=== PATIENT | female | born 1990 | race Caucasian/White ===

== ENCOUNTER 2016-07-29 10:08 | Emergency (ER) | payer MEDICAID ==
[~2016-07-29] VITALS: Ht 177.8 cm; Wt 77.1 kg
--- NOTE | 2016-07-29 10:42 | NUR ---
PRESENT SELF TO ED FOR PELVIC PAIN X 4 DAYS AND VAGINAL BUMPS. PT DENIES HEMATURIA AND DYSURIA, NO DISCHARGES. VSS
[2016-07-29 10:48] VITALS: BP 122/80
--- NOTE | 2016-07-29 10:49 | NUR ---
Patient discharged to home in stable condition. Written and verbal after care instructions given. Patient verbalizes understanding of instruction.
== END 2016-07-29 10:52 | disposition home or self-care (01) ==
LOC: ER 10:10
DX: B00.9 Herpesviral infection, unspecified (principal)
CPT/HCPCS: A4606; Z7610